=== PATIENT | female | born 1985 | race Caucasian/White ===

== ENCOUNTER 2024-12-07 20:53 | Emergency (ER) | payer OTHER, SELFPAY ==
[2024-12-07 21:09] VITALS: BP 144/90; PULSE 78; RESP 20; TEMP 36.2; O2SAT 100; BMI 34.2
--- NOTE | 2024-12-07 21:19 | ED.GENADULT ---
HPI - General Adult General Time Seen by Provider: 21:20 Date Seen: 12/07/24 Chief complaint: Dizziness/Vertigo Stated complaint: Headache Time Seen by Provider: 12/07/24 21:18 Source: patient and RN notes reviewed Mode of arrival: ambulatory Limitations: no limitations History of Present Illness HPI narrative: This 39-year-old female is coming in with left ear issues, mild frontal headache an episode of spinning sensation tonight. She has had about a week of her left ear feeling like it is plugged. There is no prodromal illness, she has not been sick with anything, no cough or cold symptoms. She does fly a lot for work. She was trying to use pressure by a holding her nose and trying to back pressure her ear open. When doing that, she had an episode where she had sudden on set of dizziness, consistent with the room spinning. She had nausea with that. When she attempted to go walk to the toilet, her gait was imbalanced with this. She actually sat on the toilet for about 20-30 minutes, turned the light off. She did make it to the couch, covered up with a blanket, kept her eyes closed. This may have lasted an hour to 2 hours. The spinning sensation is gone. She just does not feel right. Her ear does not feel right. She denied any loss of hearing but definitely on testing had diminished hearing in the left ear that she had a noted. She did Google the symptoms, stroke was 1 of them. She took an 81 mg aspirin and Tylenol prior to coming in. She states that there is no chance for . Related Data Home Medications ?Medication ?Instructions ?Recorded ?Confirmed bupropion HCl PO 12/07/24 phentermine .ROUTE 12/07/24 Previous Rx's ?Medication ?Instructions ?Recorded amoxicillin 875 mg-potassium 1 tab PO BID #13 tabs 12/07/24 clavulanate 125 mg tablet prednisone 20 mg tablet 60 mg (3 x 20 mg) PO DAILY #21 tabs 12/07/24 valacyclovir 1 gram tablet 1,000 mg PO TID #20 tabs 12/07/24 Allergies Allergy/AdvReac Type Severity Reaction Status Date / Time No Known Drug Allergies Allergy Verified 12/07/24 22:16 Review of Systems Status of ROS: Reports: 6 or more systems reviewed and unremarkable except as noted in History and below PFSH [facility] Surgical History H/O section ?Z98.891 - History of uterine scar from previous surgery (ICD-10) H/O kidney donation ?Z90.5 - Acquired absence of kidney (ICD-10) Social History Smoking Status: Never smoker Do you use any of these nicotine containing products: None Second hand tobacco smoke exposure: No How often do you have a drink containing alcohol: never AUDIT-C Alcohol total score: 0 Non-prescribed substance use: denies use service: No Exam Const: Vital Signs, click to edit/add: Vital Signs - 24 hr 12/07/24 21:09 Temperature 97.2 F L Pulse Rate [Left P ulse Oximeter] 78 Respiratory Rate 20 Blood Pressure [Le ft Upper Arm] 144/90 H Pulse Oximetry 100 Oxygen Delivery Me thod Room Air This 39-year-old female is alert, interactive, no apparent distress. Pupils equal round reactive, sclerae clear, extraocular muscles intact. Symmetrical facial function, speech is normal. TMs canals normal, symmetric, no evidence of infection, no visible changes in either tympanic membrane. Neck is supple, no adenopathy or masses. Lungs are clear, good air entry, no wheezing or crackles, no tachypnea. CV regular rate and rhythm, no murmur, normal S1-S2. Strength is 5/5 and symmetric, normal light touch sensation. Patient was ambulatory into the ED of her own accord, saw her walk back. Her gait is normal, normal lower extremity strength. With finger rub, she definitely notices diminished hearing in the left ear versus the right. Documenting provider has reviewed patient's vital signs: yes Course Course ED Course: Did review with patient that her symptoms with aural fullness, diminished hearing make me more concerned for an inner ear process. I do wonder about Meniere's. We will do head CT and CT angio of her head neck. Have discussed with her that I certainly can talk to ENT. Reevaluation(s) Time of Reevaluation #1: 21:28 Reevaluation #1: Did speak with ENT Dr. Calix and reviewed case. He recommended that we place patient on antivirals and steroids, follow up in 1 weeks time with him, contact him earlier if worsening or increasing/concerning symptoms. Time of Reevaluation #2: 22:52 Reevaluation #2: Have reviewed with patient her negative CT angio imaging preliminarily. Her labs are reassuring minus pending TSH. Her head CT showing no acute stroke but there may be changes with some fluid in the left mastoid air cells. Re-evaluation reveals no erythema, no tenderness over the mastoid. It is possible that this could be early inflammatory change. In any event, in an afebrile patient normal white blood count, nontoxic patient, do not feel that we need to initiate IV antibiotics. Have reviewed this with her. I will cover her with antibiotics plus the antiviral and prednisone. Given it is 11:00 p.m. jessica, will just start with 20 mg of prednisone now, she can start the full 60 mg daily dosing tomorrow. Will give her dose of Valtrex here tonight. Vital Signs Vital signs: Initial Vital Signs Temperature 97.2 F L 12/07/24 21:09 Temperature Source Temporal Artery Scan 12/07/24 21:09 Pulse Rate 78 12/07/24 21:09 Pulse Rhythm Regular 12/07/24 21:09 Respiratory Rate 20 12/07/24 21:09 Blood Pressure 144/90 H 12/07/24 21:09 Blood Pressure Mean 108 H 12/07/24 21:09 Blood Pressure Position Sitting 12/07/24 21:09 Pulse Oximetry 100 12/07/24 21:09 Oxygen Delivery Method Room Air 12/07/24 21:09 Vital Signs Temperature 97.2 F L 12/07/24 21:09 Pulse Rate 78 12/07/24 21:09 Respiratory Rate 20 12/07/24 21:09 Blood Pressure 144/90 H 12/07/24 21:09 Pulse Oximetry 100 12/07/24 21:09 Oxygen Delivery Method Room Air 12/07/24 21:09 Temperature 97.2 F L 12/07/24 21:09 Pulse Rate 78 12/07/24 21:09 Respiratory Rate 20 12/07/24 21:09 Blood Pressure 144/90 H 12/07/24 21:09 Pulse Oximetry 100 12/07/24 21:09 Oxygen Delivery Method Room Air 12/07/24 21:09 Medical Decision Making Lab Data Lab results reviewed: Yes I reviewed the patient's lab results Labs: Lab Results 12/07/24 Range/Units 21:45 WBC 10.07 (4.50-11.00) K/uL RBC 4.71 (4.00-5.20) m/uL Hgb 13.3 (12.0-16.0) gm/dL Hct 39.4 (33.0-51.0) % MCV 84 (80-100) fL MCH 28 (26-34) pg MCHC 34 (32-36) gm/dL RDW Coeff of Tammi 12.1 (11.5-15.5) % Plt Count 162 (140-440) K/uL Neut % (Auto) 79.8 H (42.0-72.0) % Lymph % (Auto) 13.8 L (20-44) % Whitley % (Auto) 5.1 (0.0-11.0) % Eos % (Auto) 0.7 (0.0-7.0) % Baso % (Auto) 0.3 (0.0-3.0) % Neut # (Auto) 8.00 H (1.7-7.0) K/uL Lymph # (Auto) 1.40 (0.90-2.90) K/uL Whitley # (Auto) 0.50 (0.00-0.90) K/UL Eos # (Auto) 0.07 (0.00-0.50) K/uL Baso # (Auto) 0.03 (0.00-0.30) K/uL Abs Immat Gran (auto) 0.03 (0.00-0.30) K/uL Imm/Tot Granulo (auto) 0.3 % Sodium 140 (135-149) mmol/L Potassium 4.3 (3.6-5.1) mmol/L Chloride 104 (96-114) mmol/L Carbon Dioxide 27 (20-32) mmol/L Anion Gap 9 (7-15) mEq/L BUN 15 (5-24) mg/dL Creatinine 0.9 (0.5-1.5) mg/dL Estimated Creat Clear 92.87 Estimated GFR 83 ml/min Glucose 128 H (60-115) mg/dL Calcium 9.5 (8.4-10.6) mg/dL Magnesium 1.9 (1.5-2.6) mg/dL TSH 1.910 (0.270-4.200) uIU/mL Imaging Data CT scan - head: Attestation: I have reviewed the pertinent imaging results. Radiologist's impression: Patient: MEDARDO MUKHERJEE Facility:?[facility] Patient ID:?[id number] Site Patient ID:?[id number]. Site :?1985 Study:?CT-Head W/O-12/07/2024 10:20:38 PM Ordering Physician:Wong Ritter Final Report: INDICATION: Left aural fullness. Diminished hearing with vertigo, headache, and nausea. TECHNIQUE: CT head without contrast. COMPARISON: None. FINDINGS: No acute intracranial hemorrhage. No CT evidence of acute territorial infarct. No hydrocephalus or midline shift. Normal cerebral parenchymal volume. Mild polypoid mucosal disease of the right maxillary sinus. There is opacification of some left mastoid air cells. No acute calvarial fracture. IMPRESSION: 1. No CT evidence of intracranial hemorrhage or acute territorial infarct. 2. Mild opacification of the left mastoid air cells which may be seen in the setting of mastoiditis. Please note that all CT scans at this facility use dose modulation, iterative reconstruction, and/or weight-based dosing when appropriate to reduce radiation dose to as low as reasonably achievable. Dictated by Chris Singh MD @ 12/07/2024 10:30:42 PM (Electronic Signature) CT- Other: Attestation: I have reviewed the pertinent imaging results. Radiologist's impression: Patient: MEDARDO MUKHERJEE Facility:?[facility] Patient ID:?[id number] Site Patient ID:?[id number]. Site :?1984 Study:?CT-Head Angio W/ 95CC ISOVUE 370-12/07/2024 10:21:08 PM Ordering Physician:Wong Ritter Preliminary Report: Preliminary findings/impression: No large vessel occlusion or significant vascular stenosis within the head or neck. No CT evidence of acute vascular injury. Dictated by Chris Singh MD @ 12/07/2024 10:35:39 PM Read by:?Chris Singh MD @12/07/2024 10:36:02 PM Discharge Plan Discharge Clinical Impression: Fullness in left ear, Decreased hearing of left ear Patient Disposition: Home, Self-Care Condition: Stable Instructions: Hearing Loss (ED) Additional Instructions: Continue with prednisone, Valtrex and Augmentin as prescribed. Next dose due tomorrow morning. Need to contact Dr. Calix's scheduling for follow up appointment in one week, sooner if concerns or worsening. [facility] [phone]. He requests no exercise until follow up. TSH (thyroid test) was pending at time of discharge, I will contact you if this comes back abnormal. Activity Level: Light activity Prescriptions: New valacyclovir 1 gram tablet 1,000 mg PO TID Qty: 20 0RF amoxicillin-pot clavulanate 875-125 mg tablet 1 tab PO BID Qty: 13 0RF prednisone 20 mg tablet 60 mg PO DAILY Qty: 21 0RF Rx Instructions: Can take 40mg in am with food, 20mg at noon with food. No Action bupropion HCl PO phentermine .ROUTE Follow Up/Referrals: Shayy Galdamez PA-C [Primary Care Provider] - Stand Alone Forms: [email or web address] Info Instructions
--- NOTE | 2024-12-07 21:28 | CRLHL7_ITS ---
For Patients: As a result of the Century Cures Act, medical imaging exams and procedure reports are released immediately into your electronic medical record. You may view this report before your referring provider. If you have questions, please contact your health care provider. INDICATION: Acute stroke, vertigo, headache, nausea. TECHNIQUE: CTA head with contrast bolus tracking, 3D angiographic rendering using maximum intensity projection (MIP) and images permanently archived. FINDINGS: There is normal opacification of the intracranial vasculature. There is no large vessel occlusion. No aneurysm is identified. IMPRESSION: Unremarkable head CTA. Please note that all CT scans at this facility use dose modulation, iterative reconstruction, and/or weight-based dosing when appropriate to reduce radiation dose to as low as reasonably achievable. Dictated by Jun Rios MD @ 12/08/2024 7:16:07 AM (Electronically Signed)
--- NOTE | 2024-12-07 21:28 | CRLHL7_ITS ---
For Patients: As a result of the Century Cures Act, medical imaging exams and procedure reports are released immediately into your electronic medical record. You may view this report before your referring provider. If you have questions, please contact your health care provider. INDICATION: Acute stroke, vertigo, headache, nausea. TECHNIQUE: CTA neck with contrast bolus tracking, 3D angiographic rendering using maximum intensity projection (MIP) and images permanently archived. FINDINGS: There is no significant carotid artery stenosis or dissection. There is no significant vertebral artery stenosis or dissection. The soft tissues of the neck are within normal limits. The cervical spine is in normal alignment. IMPRESSION: Unremarkable neck CTA. No significant carotid or vertebral artery stenosis or dissection. Please note that all CT scans at this facility use dose modulation, iterative reconstruction, and/or weight-based dosing when appropriate to reduce radiation dose to as low as reasonably achievable. Dictated by Jun Rios MD @ 12/08/2024 7:17:07 AM (Electronically Signed)
--- NOTE | 2024-12-07 21:28 | CRLHL7_ITS ---
For Patients: As a result of the Century Cures Act, medical imaging exams and procedure reports are released immediately into your electronic medical record. You may view this report before your referring provider. If you have questions, please contact your health care provider. INDICATION: Left aural fullness. Diminished hearing with vertigo, headache, and nausea. TECHNIQUE: CT head without contrast. COMPARISON: None. FINDINGS: No acute intracranial hemorrhage. No CT evidence of acute territorial infarct. No hydrocephalus or midline shift. Normal cerebral parenchymal volume. Mild polypoid mucosal disease of the right maxillary sinus. There is opacification of some left mastoid air cells. No acute calvarial fracture. IMPRESSION: 1. No CT evidence of intracranial hemorrhage or acute territorial infarct. 2. Mild opacification of the left mastoid air cells which may be seen in the setting of mastoiditis. Please note that all CT scans at this facility use dose modulation, iterative reconstruction, and/or weight-based dosing when appropriate to reduce radiation dose to as low as reasonably achievable. Dictated by Chris Singh MD @ 12/07/2024 10:30:42 PM (Electronically Signed)
[2024-12-07 21:55] LABS: Basophils Absolute Auto 0.03 K/uL (0.00-0.30); Basophils Percent Auto 0.3 % (0.0-3.0); Eosinophils Absolute Auto 0.07 K/uL (0.00-0.50); Eosinophils Percent Auto 0.7 % (0.0-7.0); Hematocrit 39.4 % (33.0-51.0); Hemoglobin* 13.3 gm/dL (12.0-16.0); Immature Granulocytes Abs Auto 0.03 K/uL (0.00-0.30); Immature Granulocytes Pct Auto 0.3 %; Lymphocytes Percent Auto 13.8 % (20-44); Mean Corpuscular HGB Conc 34 gm/dL (32-36); Mean Corpuscular Hemoglobin 28 pg (26-34); Mean Corpuscular Volume 84 fL (80-100); Monocytes Percent Auto 5.1 % (0.0-11.0); Neutrophils Percent Auto 79.8 % (42.0-72.0); Platelet Count* 162 K/uL (140-440); RDW Coefficient of Variation % 12.1 % (11.5-15.5); Red Blood Count 4.71 m/uL (4.00-5.20); White Blood Count* 10.07 K/uL (4.50-11.00)
[2024-12-07 21:56] LABS: Slide Review Reflex No
[2024-12-07 22:10] LABS: Chloride* 104 mmol/L (96-114); Potassium* 4.3 mmol/L (3.6-5.1); Sodium* 140 mmol/L (135-149)
[2024-12-07 22:13] LABS: Anion Gap 9 mEq/L (7-15); Blood Urea Nitrogen* 15 mg/dL (5-24); Calcium* 9.5 mg/dL (8.4-10.6); Carbon Dioxide* 27 mmol/L (20-32); Creatinine* 0.9 mg/dL (0.5-1.5); Est. Creatinine Clearance* 92.87; Estimated Glomerular Filt Rate 83 ml/min; Glucose* 128 mg/dL (60-115); Magnesium* 1.9 mg/dL (1.5-2.6)
--- OUTSIDE RECORDS SUMMARY | 2024-12-07 22:24 | XMS_ITS | Clinical Summary ---
Author Organization [facility] Address [address] [place] [address] Care Team Providers Care Bottom Buffer Name Role Phone Shayy Galdamez Primary Care Provider [phone] Allergies Active Allergy Reactions Criticality Noted Date Comments Amoxicillin Rash 09/28/2005 Patient did ok on Augmentin with no reaction Medications CULINARY SPECIALIST Thyroid 30 mg tablet 10/29/2023 Active multivit with iron,minerals (MULTIVITAMIN AND MINERALS ORAL) Take by mouth. 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, PATELLA Resolved Problems Problem Noted Date Diagnosed Date Resolved Date S/P section 10/29/2015 023 Other acne 09/28/2005 09/26/2022 SPRAIN/STRAIN, ANKLE NOS 02/10/2002 Immunizations Immunization Administration Dates Next Due COVID-19 vaccine (Moderna 100mcg/0.5mL) PF, MDV 09/27/2020,08/30/2020 DTP 08/20/1985, 5,1984,1983 HIB PRP-OMP (PedvaxHIB) 08/20/1985 Hepatitis B (Peds) 02/17/1999,01/18/1999 Influenza Virus, Unspecified 06/21/2017,05/28/20 16,05/14/2015 Influenza, IIV4 06/05/2019 Influenza,CCIIV4 PRESERV FREE 06/09/2022, 021,05/06/2020 MMR 03/19/1996,05/05/1995,05/05/1985 Oral Polio Vaccine 08/20/1985,1984, 984 Tdap 08/17/2015,12/30/2006 Family History Medical History Relation Name Comments Good Health Father Heart Disease Maternal Grandfather [place]- 60 's. GI Disease Mother IBS Hypertension Mother Kidney disease Mother Relation Name Status Comments Brother Alive Father Alive Maternal Grandfather Mother Alive Social History Tobacco Use Types Packs/Day Years Used Date Smoking Tobacco: Never Smokeless Tobacco: Never Tobacco Cessation:Counseling Given: Not Answered Alcohol Use Standard Drinks/Week Comments Yes 1 (1 standard drink = 0.6 oz pur e alcohol) once a month PHQ-2 Answer Date Recorded PHQ-2 TOTAL SCORE 0 11/12/2023 Social Connections Answer Date Recorded Do you often feel lonely or isolated from those around you? 0 08/23/2024 Financial Resource Strain Answer Date R ecorded Difficulty of Paying Living Expenses 3 08/23/2024 Difficulty of Paying Living Expenses Not on file 08/23/2024 Food Insecurity Answer Date Recorded Do you worry your food will run out before you are able to buy more? 1 08/23/2024 Transportation Needs Answer Date Record ed Does lack of transportation keep you from medica l appointments? 1 08/23/2024 Does lack of transportation keep you from work, meetings or getting things that you need? 1 08/23/2024 Housing Stability Answer Date Recorded What is your housing situation today? 1 08/23/2024 Utilities Answer Date Recorded Do you have trouble paying f or utilities (for example, heat, electricity, water, phone)? 1 08/23/2024 Comments No Sex and Gender Information Value Date Recorded Sex Assigned at Not on file Legal Sex Female 5:24 AM SHOT MAN Gender Identity Not on file Sexual Orientation Not on file Occupation Industry Job Start Date Job End Date Adarsh Desir Not on file Not on file Not on file Obstetrics History Para Term AB IAB SAB Ectopic Multiple Livin g Live Births 2 1 1 Date Outcome GA Total Labor Labor/2nd/3rd Weight Sex Type Anes PTL Chanelle A1 A5 Name Clin SAB Last Filed Vital Signs Vital Sign Reading Time Taken Comments Blood Pressure 139/76 08/23/2024 10:24 AM SHOT MAN Pulse 74 08/23/2024 10:24 AM SHOT MAN Temperature 36.2 C (97.1 F) 08/23/2024 10:24 AM SHOT MAN Respiratory Rate 18 08/23/2024 10:2 4 AM SHOT MAN Oxygen Saturation 98% 08/23/2024 10: 24 AM SHOT MAN Inhaled Oxygen Concentration - - Weight 118.7 kg (261 lb 9.6 oz) 025 10:24 AM SHOT MAN Height 179.1 cm (5' 10.5) 11/12/2023 8:48 AM CD T Body Mass Index 37.01 11/12/2023 8:48 AM CDT Plan of Treatment Health Maintenance Due Date Last Done Comments HIV for age 15-65 02/06/1999 Hepatitis C screening for age 18-79 02/06/2002 Pap test for age 21-65 10/15/2023 , 12/30/2006, 02/15/2003 COVID-19 vaccine series ( season) 2024 06/16/2021, 09/27/2020, 08/30/2020 BMI (ht and wt on same day) for age 18+ 11/11/2024 11/12/2023, 09/26/2022, 10/14/2020 Depression screening for age 12+ 11/11/2024 11/12/2023, 09/26/2022, 09/26/2022, Additional history exists Influenza Vaccine (Season Ended) 2025 06/09/2022, 05/29/2021, 05/06/2020, Additional history exists Tetanus booster 08/17/2025 08/17/2015, 12/30/2006 Tdap Completed 08/17/2015, 12/30/2006 Pneumococcal series for age 6-49 Aged Out No longer eligible based on patient's age to complete this topic Procedures Procedure Name Priority Date/Time Associated Diagnosis Comments ANIMAL BIOLOGIST THIN PREP PAP SCREEN IMAGED Routine 10/14/2020 8:55 AM SHOT MAN Pap smear for cervical cancer screening from Last 3 Months or Most Recently Relevant to Health Maintenance Results * ANIMAL BIOLOGIST THIN PREP PAP SCREEN IMAGED (10/14/2020 8:55 AM SHOT MAN) Case Report Gynecologic Cytology Report Case: [id number] Authorizing Provider: Shayy Galdamez PA Collected: 10/14/2020 0855 Ordering Location: [facility] Received: 10/14/2020 1017 Clinic First Screen: Addy Merchant Rescreen: Beth Boss Specimen: ANIMAL BIOLOGIST ThinPrep Vial Screening, Cervical 10/26/2020 3:02 PM CDT [facility] INTERPRETATION/ RESULT NEGATIVE FOR INTRAEPITHELIAL LESION OR MALIGNANCY (NIL) (none) 10/26/2020 3:02 PM CDT [facility] at 1502 CDT SPECIMEN ADEQUACY Satisfactory for evaluation Endocervical component present 10/26/2020 3:02 PM CDT [facility] HPV REQUEST HPV if ASCUS 10/26/2020 3:02 PM CDT [facility] Date of LMP Hormonally Suppressed 10/26/2020 3:02 PM CDT [facility] Last Pap Date unknown 10/26/2020 3:02 PM [facility] Last Pap Result First Pap/Unknown 3:02 PM CDT [facility] Abnormal Pap or [place] Bx in last 5 years No 10/26/2020 3:02 PM CDT [facility] Menstrual Status Hormonally Suppressed 10/26/2020 3:02 PM CDT [facility] [place] Bx Done Today No 10/26/2020 3:02 PM CDT [facility] Additional Information None given 10/26/2020 3:02 PM CDT [facility] Comment: Cytology is screened at [facility], Central Laboratory - [address] [facility] [address] [address] and [facility] - [address] [place] [address] and [facility] - [address] [place] [address] Interpreted at [facility], Central Laboratory - [address], [place] [address] Automated Review Successful 10/26/2020 3:02 PM CDT [facility] Comment:Specimen processed s uccessfully by automated yacht master device, [employer] Imaging System, [employer] Note The pap test is a screening technique, not a diagnostic procedure. It is used primarily to screen for squamous cancers and precursor lesions. Published studies have shown that it is subject to both false negative and false positive results. The pap test should not be used as the sole means to diagnose or exclude pre-malignant and malignant lesions. 10/26/2020 3:02 PM CDT [facility] Other (Cervical) Non-Blood / Unknown 10/14/2020 8:55 AM SHOT MAN 10/14/2020 10:17 AM SHOT MAN us Shayy [facility]/CYTOLOGY Final Result [facility] [address] [place] [address], [place] from Last 3 Months or Most Recently Relevant to Health Maintenance Insurance [facility] Advance Directives * Full Code (Latest Code Status on File) Date Activated Date Inactivated Comments 10/29/2015 6:01 AM 11/01/2015 1:34 PM * Full Code Date Activated Date Inactivated Comments 10/29/2015 4:24 AM 10/29/2015 6:01 AM * Full Code Date Activated Date Inactivated Comments 10/28/2015 10:58 AM 10/29/2015 4:24 AM Question Answer Comments Code Status Discussion: Discussed * Full Code Date Activated Date Inactivated Comments 10/27/2015 6:23 PM 10/28/2015 10:58 AM Care Teams Bottom Buffer Relationship Specialty Start [place] [address] [place] [address] PCP - General Physician Drier Belt Conveyor 09/02/23
[2024-12-07] MEDS: predniSONE 10 MG TABLET 20 MG PO (23:11)
[2024-12-07] MEDS: VALACYCLOVIR HCL 500 MG TABLET 1000 MG PO (23:11)
[2024-12-07] MEDS: AMOXICILLIN/CLAVULANATE 875 mg/125 mg TABLET PO (23:11)
== END 2024-12-07 23:13 | disposition home or self-care (01) ==
PROVIDERS: Emergency Provider Family Medicine; PCP Physician Assistant
DX: R51.9 Headache, unspecified (principal); R42 Dizziness and giddiness; H91.92 Unspecified hearing loss, left ear; H93.8X2 Other specified disorders of left ear
CPT/HCPCS: 36415; 70450; 70496; 70498; 80048; 83735; 84443; 85025; 99284; 99285; A9270; J7512; Q9967

== ENCOUNTER 2024-12-24 13:32 | Outpatient (CLI) | payer OTHER, SELFPAY ==
--- NOTE | 2024-12-24 13:45 | CRLHL7_ITS ---
For Patients: As a result of the Century Cures Act, medical imaging exams and procedure reports are released immediately into your electronic medical record. You may view this report before your referring provider. If you have questions, please contact your health care provider. INDICATION: Full feeling in ears. TECHNIQUE: Brain and temporal bone MRI without and with contrast. 20 cc of Dotarem gadolinium based intravenous contrast administered. COMPARISON : Head CT from 12/07/2024. 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 Membranous labyrinth`s are otherwise normal in appearance. Internal auditory canals: Within normal limits. Cerebellopontine angle cisterns: Within normal limits. Posterior fossa structures: Within normal limits. Temporal bones/mastoid air cells: Within normal limits. No evidence of acute ischemia. No evidence of acute or chronic intracranial blood products. No mass or pathologic intracranial enhancement. No intracranial signal abnormality. No hydrocephalus or extra-axial collections. 4 millimeter hypoenhancing lesion within the right pituitary gland, likely a cyst or microadenoma. All the major intracranial vascular structures demonstrate normal flow-related signal. The orbital contents are normal. No calvarial or skull base marrow replacing process. No obstructive sinus disease. No extracranial soft tissue findings. IMPRESSION: 1. 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 Temporal bone CT could be performed for further assessment, if clinically indicated. 2. No other significant abnormalities involving the temporal bones/internal auditory pathways. 3. 4 millimeter lesion right pituitary gland, likely a cyst or adenoma. Dictated by Jerman Kowalski MD @ 12/25/2024 6:45:11 AM (Electronically Signed)
== END 2024-12-24 13:33 | disposition home or self-care (01) ==
LOC: MRI 13:33
PROVIDERS: PCP Physician Assistant; Visit Provider Otolaryngology
DX: H91.8X3 Other specified hearing loss, bilateral (principal); E23.6 Other disorders of pituitary gland
CPT/HCPCS: 70553; A9575